=== PATIENT | male | born 1960 | race Caucasian/White ===

== ENCOUNTER → 2020-08-27 | Outpatient (CLI) | payer BC | LOC: LAB 08:24 | PROVIDERS: ATTEND Internal Medicine | DX: Z01.812 Encounter for preprocedural laboratory examination (principal); Z20.828 Contact with and (suspected) exposure to other viral communicable diseases ==

== ENCOUNTER → 2020-08-31 | Outpatient (CLI) | payer BC ==
[~2020-08-31] VITALS: Ht 195.6 cm; Wt 108.9 kg
[~2020-08-31] MED LIST: TOPROL XL25 MG PO; XARELTO20 MG PO
[2020-08-31 08:19] VITALS: BP 132/84
--- NOTE | 2020-08-31 09:48 | TEE ---
[facility] [place] [address] TRANSESOPHAGEAL ECHOCARDIOGRAM Name: NOLBERTO REAGAN [id number]mission: 08/31/20 Attend Phys: Obi Giraldo MD, Discharge: Date of : 58 Report #: [id number] THIS REPORT FOR: cc: Martell Padgett MD, David P. MD Santiago, Patrick MD [facility] ~ APPROVED REPORT Study performed: 08/31/2020 08:19:39 EXAM: Transesophageal Echocardiogram Patient Location: Out-Patient Status: routine BSA: 2.42 HR: 133 bpm BP: 132/84 mmHg Rhythm: Atrial Fibrillation Other Information Study Quality: Good Indications Atrial Fibrillation Cardioversion. Procedure After obtaining informed consent, patient underwent transesophageal echo in the [employer]. Type of Sedation : Conscious Sedation Sedation was administered by [employer] DEVI. Sedation was achieved intravenously with: Versed (4) Fentanyl (75) Transesophageal probe was inserted and advanced into esophagus without difficulty by Obi Giraldo MD [facility]. Echo enhancement indication: R/O Septal defect. Echo enhancement agent administered: Agitated Saline The LEXA was performed without complications. Synchronized Cardioversion attempted: Successful Synchronized Cardioversion acheived with 50 Joules after 1 attempt(s). Rhythm following Synchronized Cardioversion: Normal Sinus Rhythm Throughout the procedure, the blood pressure, pulse oximetry, cardiac rhythm, and rate were monitored. The patient tolerated the procedure without adverse effects. Recovery [facility] [address] [place] [address] TRANSESOPHAGEAL ECHOCARDIOGRAM Name: NOLBERTO REAGAN Room #: REG CL [facility].#: [id number] Admission: 08/31/20 Attend Phys: Obi Giraldo, Discharge: Date of : 58 Report #: [id number] from conscious sedation was uneventful and vital signs were stable. Left Ventricle The left ventricle is normal size. There is normal left ventricular wall thickness. Left ventricular systolic function is moderately decreased. LVEF is 30-35%. Right Ventricle Right ventricle is hypokinetic. Atria Biatrial enlargement. No thrombus is visualized in the left atrium or appendage. No shunting noted with contrast bubble injection. Aortic Valve The aortic valve is normal in structure. No aortic regurgitation is present. There is no aortic valvular stenosis. Mitral Valve The mitral valve is normal in structure. Moderate mitral regurgitation. Tricuspid Valve The tricuspid valve is normal in structure. Trace tricuspid regurgitation. Great Vessels No atherosclerotic plaque is present in the descending aorta. Pericardium There is no pericardial effusion. <Conclusion> Normal left ventricular size/wall thickness Global hypokinesis EF 35% Right ventricle normal size/mildly hypokinetic Moderate biatrial enlargement Color-flow Doppler study was performed of the aortic/mitral/tricuspid/pulmonary valve Moderate/central mitral valve insufficiency Trace tricuspid valve insufficiency, unable to assess PA systolic pressure No evidence of ASD/VSD by color flow/bubble study No pericardial effusion [facility] [address] [place] [address] TRANSESOPHAGEAL ECHOCARDIOGRAM Name: NOLBERTO REAGAN Room #: REG [facility]#: [id number] Admission: 08/31/20 Attend Phys: Obi Giraldo, Discharge: Date of : 58 Report #: [id number] Patient was successfully cardioverted to sinus rhythm after 50 J biphasic mode Patient tolerated procedure well <ELECTRONICALLY SIGNED> By: Obi Giraldo MD, FACC 08/31/20947 7 7 Obi Giraldo MD, FACC /INF
== END | disposition home or self-care (01) ==
LOC: CATH 06:40
PROVIDERS: ATTEND Internal Medicine
DX: I48.91 Unspecified atrial fibrillation (principal); I08.1 Rheumatic disorders of both mitral and tricuspid valves; E78.5 Hyperlipidemia, unspecified; Z98.890 Other specified postprocedural states; Z79.899 Other long term (current) drug therapy; Z79.01 Long term (current) use of anticoagulants; Z82.49 Family history of ischemic heart disease and other diseases of the circulatory system

== ENCOUNTER → 2020-10-19 | Outpatient (CLI) | payer BC, OTHER | LOC: SJCVCIMAG 07:54 | PROVIDERS: ATTEND Internal Medicine | DX: I08.1 Rheumatic disorders of both mitral and tricuspid valves (principal); I11.9 Hypertensive heart disease without heart failure; I48.0 Paroxysmal atrial fibrillation; I42.0 Dilated cardiomyopathy ==

== ENCOUNTER → 2020-10-27 | Outpatient (CLI) | payer BC, OTHER | LOC: SJCVCIMAG 07:21 | PROVIDERS: ATTEND Internal Medicine | DX: I49.3 Ventricular premature depolarization (principal); R00.0 Tachycardia, unspecified; I48.91 Unspecified atrial fibrillation; I25.5 Ischemic cardiomyopathy; R06.00 Dyspnea, unspecified; Z79.899 Other long term (current) drug therapy ==

== ENCOUNTER → 2021-07-05 | Outpatient (CLI) | payer BC, OTHER | LOC: SJCVCIMAG 07:56 | PROVIDERS: ATTEND Internal Medicine | DX: I51.7 Cardiomegaly (principal); I77.819 Aortic ectasia, unspecified site; I48.0 Paroxysmal atrial fibrillation; Z72.89 Other problems related to lifestyle; Z79.899 Other long term (current) drug therapy ==